=== PATIENT | male | born 1970 | race Asian ===

== ENCOUNTER 2022-10-15 09:16 | Day surgery (SDC) | payer OTHER ==
[~2022-10-15] VITALS: Ht 160 cm; Wt 56.2 kg
[2022-10-15] MEDS ORDERED: fentaNYL citrate 0.05 MG/ML VIAL ONE (10:24)
[2022-10-15] MEDS ORDERED: LIDOCAINE 2% 100 MG/5 ML UJET TP ONE (10:24)
[2022-10-15] MEDS ORDERED: fentaNYL citrate 0.05 MG/ML VIAL IVP ONE (11:15)
== END 2022-10-15 11:22 | disposition home or self-care (01) ==
LOC: MOR 09:16 → MMU 09:20 → MOR 11:22
PROVIDERS: ATTEND Internal Medicine Gastroenterology
DX: Z12.11 Encounter for screening for malignant neoplasm of colon (principal); I10 Essential (primary) hypertension; E11.9 Type 2 diabetes mellitus without complications; M10.9 Gout, unspecified; K21.9 Gastro-esophageal reflux disease without esophagitis; Z79.899 Other long term (current) drug therapy
CPT/HCPCS: 45378; J3010